=== PATIENT | male | born 1955 | race Caucasian/White ===

== ENCOUNTER 2020-02-28 11:45 | Inpatient (IN) ==
[2020-02-28 12:33] LABS: Basophils # 0.1 K/mcL (0.0-0.2); Basophils % 0.6 %; Eosinophils # 0.4 K/mcL (0.0-0.6); Eosinophils % 4.1 %; Hematocrit 52.9 % (37.5-50.1); Hemoglobin 16.9 g/dL (12.9-16.9); Immature Granulocytes % 0.3 % (0-4); Lymphocytes # 2.8 K/mcL (0.6-4.6); Mean Corpuscular HGB Conc 31.9 g/dL (31.6-35.5); Mean Corpuscular Hemoglobin 30.2 pg (28.0-33.3); Mean Corpuscular Volume 94.5 fL (83.0-100.0); Mean Platelet Volume 10.8 fL (9.4-12.4); Monocytes # 0.6 K/mcL (0.0-1.3); Monocytes % 5.5 %; Neutrophils # 6.9 K/mcL (1.6-8.9); Platelet Count 252 K/mcL (140-400); Segmented Neutrophils % 63.5 %; White Blood Count 10.9 K/mcL (4.3-11.1)
[2020-02-28 13:31] LABS: BUN/Creatinine Ratio 20 (6-26); Blood Urea Nitrogen 24 mg/dL (8-23); Calcium 9.2 mg/dL (8.6-10.3); Carbon Dioxide 20 mEq/L (23-29); Chloride 108 mEq/L (98-107); Glucose 235 mg/dL (70-105); Osmolality,Calculated 302 (280-300); Potassium 3.7 mEq/L (3.5-5.1); Sodium 140 mEq/L (136-145); eGFR For African Americans > 60 (> 60); eGFR For Non-African Americans > 60 (> 60)
[2020-02-28] MEDS ORDERED: Aspirin 81 MG TAB.CHEW PO ONE (13:47)
[2020-02-28] MEDS ORDERED: *HR* Heparin 5,000 UNIT/ML VIAL IVP PRN ×2 (13:47)
[2020-02-28] MEDS ORDERED: *HR* Heparin 5,000 UNIT/ML VIAL IVP ONE (13:47)
[2020-02-28 14:56] LABS: Hematocrit 52.3 % (37.5-50.1); Hemoglobin 16.8 g/dL (12.9-16.9); Mean Corpuscular HGB Conc 32.1 g/dL (31.6-35.5); Mean Corpuscular Hemoglobin 30.3 pg (28.0-33.3); Mean Corpuscular Volume 94.2 fL (83.0-100.0); Mean Platelet Volume 10.5 fL (9.4-12.4); Platelet Count 241 K/mcL (140-400); Red Blood Count 5.55 M/mcL (4.19-5.50); Red Cell Distribution Width 12.8 % (11.5-14.5); White Blood Count 10.8 K/mcL (4.3-11.1)
[2020-02-28] MEDS ORDERED: 0.9 % Sodium Chloride 2,000 ML ONE (15:24)
[2020-02-28] MEDS ORDERED: Heparin 1,000 UNITS/500 mL 500 ML ONE (15:24)
[2020-02-28] MEDS ORDERED: ISOVUE-370 200 ML INFUS..BTL ONE (15:24)
[2020-02-28] MEDS ORDERED: *HR* Heparin 10,000 UNIT/10 ML VIAL ONE (15:24)
[2020-02-28] MEDS ORDERED: Nitroglycerin 1,000 MCG/10 ML VIAL IV ONE (15:24)
[2020-02-28] MEDS ORDERED: Perflutren Lipid Microsphere 1.3 ML in 0.9 % Sodium Chloride 8.7 ML IVP PRN (15:32)
[2020-02-28] MEDS: Heparin 25,000UNIT/250ML 1/2NS 25,000 UNIT/250 ML IV.SOLN IVC SCH (15:34)
[2020-02-28] MEDS ORDERED: Ondansetron 4 MG/2 ML VIAL IVP PRN (15:46)
[2020-02-28] MEDS ORDERED: Naloxone 0.4 MG/ML INJ IVP PRN (15:46)
[2020-02-28] MEDS ORDERED: Nitroglycerin 0.4 MG TAB.SUBL SL PRN (15:48)
[2020-02-28] MEDS ORDERED: *HR* Midazolam HCl 2 MG/2 ML VIAL ONE (15:53)
[2020-02-28] MEDS ORDERED: *HR* FentaNYL (PF) 100 MCG/2 ML VIAL ONE (15:53)
[2020-02-28 16:02] LABS: Magnesium 1.9 mg/dL (1.6-2.6)
[2020-02-28 16:51] LABS: Estimated Average Glucose 151 mg/dl
[2020-02-28] MEDS: 0.9 % Sodium Chloride 1,000 ML IVC SCH (18:38)
[2020-02-28 19:02] LABS: INR 1.3; Prothrombin Time 15.1 Seconds (9.4-12.1)
[2020-02-28 19:04] LABS: Heparin anti-factor XA UFH 1.09 IU/mL (0.30-0.70)
[2020-02-29 01:38] LABS: Basophils # 0.1 K/mcL (0.0-0.2); Basophils % 0.5 %; Eosinophils # 0.4 K/mcL (0.0-0.6); Eosinophils % 3.7 %; Hematocrit 47.1 % (37.5-50.1); Hemoglobin 15.4 g/dL (12.9-16.9); Immature Granulocytes % 0.3 % (0-4); Lymphocytes # 3.4 K/mcL (0.6-4.6); Mean Corpuscular HGB Conc 32.7 g/dL (31.6-35.5); Mean Corpuscular Hemoglobin 31.2 pg (28.0-33.3); Mean Corpuscular Volume 95.3 fL (83.0-100.0); Mean Platelet Volume 10.9 fL (9.4-12.4); Monocytes # 0.9 K/mcL (0.0-1.3); Monocytes % 8.3 %; Neutrophils # 5.7 K/mcL (1.6-8.9); Platelet Count 217 K/mcL (140-400); Red Blood Count 4.94 M/mcL (4.19-5.50); Segmented Neutrophils % 54.2 %; White Blood Count 10.4 K/mcL (4.3-11.1)
[2020-02-29 01:54] LABS: Chol/HDL Ratio 9.9 (0-4.9); Cholesterol 207 mg/dL (< 200); HDL Cholesterol 21 mg/dL (40-59); Triglycerides 493 mg/dL (< 150)
[2020-02-29 01:58] LABS: Troponin I 0.84 ng/mL (< 0.04)
[2020-02-29 02:15] LABS: BUN/Creatinine Ratio 22 (6-26); Blood Urea Nitrogen 23 mg/dL (8-23); Calcium 8.3 mg/dL (8.6-10.3); Carbon Dioxide 20 mEq/L (23-29); Chloride 108 mEq/L (98-107); Glucose 215 mg/dL (70-105); Osmolality,Calculated 296 (280-300); Potassium 3.4 mEq/L (3.5-5.1); Sodium 138 mEq/L (136-145); eGFR For African Americans > 60 (> 60); eGFR For Non-African Americans > 60 (> 60)
[2020-02-29] MEDS: Gabapentin 300 MG CAPSULE PO SCH ×2 (05:48→15:43)
[2020-02-29] MEDS ORDERED: Potassium Chloride 20 MEQ, Lidocaine 1% 2 ML in 0.9 % Sodium Chloride 250 ML IVPB ONE (07:28)
[2020-02-29] MEDS ORDERED: Aspirin 81 MG TAB.CHEW PO SCH (09:00)
[2020-02-29] MEDS ORDERED: Acetaminophen 325 MG TABLET PO PRN (12:27)
[2020-02-29] MEDS: 0.9 % Sodium Chloride 1,000 ML IVC SCH (15:40)
[2020-02-29] MEDS: Heparin 25,000UNIT/250ML 1/2NS 25,000 UNIT/250 ML IV.SOLN IVC SCH (15:41)
[2020-02-29 18:37] VITALS: BP 131/67
== END 2020-02-29 20:17 | disposition short-term general hospital (02) | DRG 281 ==
LOC: EMEROOARM 11:45 → 2ANU 11:45
PROVIDERS: ADMIT Student in an Organized Health Care Education/Training Program; ATTEND Student in an Organized Health Care Education/Training Program